=== PATIENT | female | born 1960 | race Caucasian/White ===

== ENCOUNTER → 2017-06-25 09:42 | Outpatient (CLI) | payer BC, SELFPAY ==
[2017-06-25 12:10] LABS: Color, Urine Yellow (Yellow); Glucose, Dipstick Normal (Normal); Ketone-Dipstick Negative (Negative); Leukocyte Esterase-Dipstick Negative /ul (Negative); Nitrite-Dipstick Negative (Negative); Occult Blood-Urine Negative /ul (Negative); Protein-Dipstick Negative (Negative); Specific Gravity, Urine 1.015 (1.002-1.030); Urine Bilirubin Dipstick Negative (Negative); Urine Clarity Clear (Clear); Urine Urobilinogen Normal (Normal)
[2017-06-25 12:24] LABS: Protein, Urine (Random) < 6.0 mg/dL (<11.9)
[2017-06-26 08:02] LABS: HEPATITIS B SURFACE AG Negative (Negative); Hep B Surface Antibodies Non Reactive (.); Hep C Antibodies <0.1 s/co ratio (0.0-0.9)
[2017-06-26 16:53] LABS: Anti-Centromere B Ab <0.2 AI (0.0-0.9); Anti-Jo <0.2 AI (0.0-0.9); Anti-Scleroderma-70 AB <0.2 AI (0.0-0.9); RNP Ab <0.2 AI (0.0-0.9); SJOGREN'S Anti-SS-A test < 0.2 AI (0.0-0.9); SJOGREN'S Anti-SS-B test < 0.2 AI (0.0-0.9); Smith Ab <0.2 AI (0.0-0.9)
[2017-06-27 16:05] LABS: ANTINUCLEAR ANTIBODIES DIRECT Negative (Negative); Anti-dsDNA Ab <1 IU/mL (0-9)
== END ==
PROVIDERS: Family Provider Family Medicine; PCP Family Medicine; Visit Provider Internal Medicine Rheumatology
DX: M06.4 Inflammatory polyarthropathy (principal); R76.8 Other specified abnormal immunological findings in serum; M17.0 Bilateral primary osteoarthritis of knee
CPT/HCPCS: 36415; 81002; 82570; 84156; 86038; 86225; 86235; 86706; 86803; 87340

== ENCOUNTER → 2017-12-13 08:08 | Outpatient (CLI) | payer BC, SELFPAY ==
[2017-12-13 10:04] LABS: Absolute Lymphocyte Count 2.99 X10^3/ul (0.83-4.51); Absolute Neutrophil Count 5.1 X10^3/uL (2.0-7.7); Basophil# 0.04 X10^3/uL; Basophil% 0.4 % (0-1); Eosinophil# 0.25 X10^3/uL; Eosinophils% 2.8 % (0-5); Hematocrit 40.1 % (37-47); Hemoglobin 12.7 g/dl (12.0-15.0); Lymphocyte # 2.99 X10^3/ul (4.0); Lymphocyte % 33.3 % (19-41); Mean Corp Hgb Conc 31.7 g/gl (32-36); Mean Corpuscular Hgb 27.8 pg (27.0-32.0); Mean Corpuscular Volume 87.7 fL (81-99); Mean Platelet Vol. 10.8 fl (6.2-12.0); Monocyte# 0.58 X10^3/uL; Monocyte% 6.5 % (0-10); Neutrophil # 5.11 X10^3/uL (2.7-7.7); Neutrophil % 56.8 % (47-70); Platelet Count 361 K/mm3 (150-450); RBC Distribution Width CV 14.6 % (11.6-14.6); RBC Distribution Width SD 45.9 fl (35.1-43.9); Red Blood Count 4.57 M/mm3 (4.2-5.4)
[2017-12-13 10:05] LABS: POSITIVE COUNT NO; POSITIVE DIFFERENTIAL NO; POSITIVE MORPHOLOGY NO
[2017-12-13 10:12] LABS: ALB/GLOB Ratio 0.7 RATIO (0.9-2.4); AST(SGOT) 9 U/L (15-37); Alanine Aminotransfer ALT/SGPT 23 U/L (13-56); Alkaline Phosphatase 102 U/L (45-117); Anion Gap 8 (5-15); BUN 11 mg/dL (7-18); BUN/Creat Ratio 16.1 RATIO (10-20); Calcium,Total 9.6 mg/dL (8.5-10.1); Chloride 107 mmol/L (98-107); Creatinine, Serum 0.68 mg/dL (0.55-1.02); EST Glomerular Filtration Rate 94 mL/min (>60); Est Glom Filt Rate - Afr Amer 114 mL/min (>60); Globulin 4.1 g/dL (2.2-4.2); Glucose 111 mg/dL (74-106); Potassium 4.5 mmol/L (3.5-5.1); Protein, Total 7.1 g/dL (6.4-8.2); Sodium Level 142 mmol/L (136-145)
== END ==
PROVIDERS: Family Provider Family Medicine; PCP Family Medicine; Visit Provider Internal Medicine Rheumatology
DX: M06.4 Inflammatory polyarthropathy (principal); Z79.899 Other long term (current) drug therapy; M17.0 Bilateral primary osteoarthritis of knee; M21.40 Flat foot [pes planus] (acquired), unspecified foot; M51.37 Other intervertebral disc degeneration, lumbosacral region; K21.9 Gastro-esophageal reflux disease without esophagitis; I10 Essential (primary) hypertension
CPT/HCPCS: 36415; 80053; 85025